=== PATIENT | male | born 1975 | race Caucasian/White ===

== ENCOUNTER 2021-03-17 14:55 | Observation (INO) | payer OTHER ==
[~2021-03-17] VITALS: Ht 177.8 cm; Wt 110.0 kg
--- NOTE | ~2021-03-17 | OP ---
[facility] [address] [place] [address] OPERATIVE REPORT Name: PARMJIT CLEMONS Room: [address] IN M.R.#: [id number] Admission: 03/17/21 Attend Phys: Juan Murdock Discharge: Date of : 73 Report #: [id number] THIS REPORT FOR: cc: Amla Garcia Amy FNP Patterson,Juan Moise MD ~ DATE OF SURGERY: 03/18/2021 PREOPERATIVE DIAGNOSIS: Acute appendicitis. POSTOPERATIVE DIAGNOSIS: Acute appendicitis. OPERATION: Laparoscopic appendectomy. SURGEON: Juan Murdock MD ANESTHESIA: General. ESTIMATED BLOOD LOSS: Minimal. SPECIMENS: Appendix. DESCRIPTION OF PROCEDURE: After informed consent was obtained, the patient was brought to the operating room and placed supine. SCDs were placed and working, preoperative antibiotics were administered, general anesthesia was induced. The abdomen was prepped and draped in the usual sterile fashion. A 10 mm incision was made below the umbilicus. Fascia was incised and a trocar was placed. Pneumoperitoneum was established. A right upper quadrant and left lower quadrant 5 mm trocars were placed. The appendix was grasped and retracted anteriorly. A window was made in the mesoappendix. The mesoappendix was ligated using a LigaSure device. There was good hemostasis. Base of the appendix was identified. The base of the appendix was stapled off with a DAYNA blue load stapler. The appendix was placed into an Endopouch and removed. The fascia was then closed with a duqica-cf-vwywu 0 Vicryl. Skin was closed with 4-0 Monocryl. Incisions were dressed with Steri-Strips. COMPLICATIONS: None. DISPOSITION: The patient was taken to recovery in satisfactory condition. By: [id number] Murdock MD /nt
[2021-03-17 15:02] VITALS: BP 144/83
[2021-03-17] MEDS ORDERED: LISINOPRIL20 MG PO (15:09)
[2021-03-17 15:26] LABS: URINE BILIRUBIN NEGATIVE (Negative); URINE BLOOD TRACE (Negative); URINE CLARITY CLEAR; URINE COLOR YELLOW; URINE GLUCOSE-RANDOM NEGATIVE (Negative); URINE KETONES NEGATIVE (Negative); URINE LEUKOCYTES-REFLEX NEGATIVE (Negative); URINE NITRITE-REFLEX NEGATIVE (Negative); URINE PROTEIN NEGATIVE (Negative); URINE SPECIFIC GRAVITY 1.015 (1.005-1.030); URINE UROBILINOGEN 0.2 E.U./dl (0.2-1.0)
[2021-03-17 15:32] LABS: ABSOLUTE BASOPHILS 0.1 thou/uL (0.0-0.2); ABSOLUTE EOSINOPHILS 0.1 thou/uL (0.0-0.7); ABSOLUTE LYMPHOCYTES 2.2 thou/uL (0.8-5.3); ABSOLUTE NEUTROPHILS 8.5 thou/uL (1.6-8.1); BASOPHILS 0.6 %; EOSINOPHILS 0.7 %; HEMATOCRIT 43.8 % (42.0-52.0); HEMOGLOBIN 15.2 gm/dL (14.0-18.0); LYMPHOCYTES 18.8 %; MCH 29.9 pg (26.0-34.0); MCHC 34.6 g/dL (28.0-37.0); MCV 86.3 fL (80.0-100.0); MONOCYTES 8.2 %; MPV 7.4 fl. (7.2-11.1); NUCLEATED RBCS 0 /100WBC; PLATELET COUNT* 198 thou/uL (150-400); POLYS 71.7 %; RBC 5.07 mil/uL (4.50-6.00); WBC 11.9 thou/uL (4.0-11.0)
[2021-03-17 15:40] LABS: CALCIUM 8.5 mg/dL (8.5-10.1); CREATININE 1.1 mg/dL (0.6-1.3)
[2021-03-17 15:44] LABS: ALBUMIN 3.6 g/dL (3.4-5.0); TOTAL BILIRUBIN 0.6 mg/dL (<0.1-1.0); TOTAL PROTEIN 7.1 g/dL (6.4-8.2)
--- NOTE | 2021-03-17 16:07 | EKG ---
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: [facility] : 1975 Requested By: Darrel Akbar Order Number: [id number] MD: Shawn Cox Measurements Intervals [place] Rate: 76 P: 31 UT: 158 QRS: 16 QRSD: 76 T: 15 QT: 364 QTc: 410 Interpretive Statements Sinus rhythm wandering baseline Probable left atrial enlargement No previous ECG available for comparison Electronically Signed On 03-17-2021 16:07:16 CDT by Shawn Cox [email or web address] <ELECTRONICALLY SIGNED> By: Shawn Cox MD, [facility] 03/17/21 1607 D: [id number] Shawn Cox MD, FACC /EPI
[2021-03-17 20:10] VITALS: BP 134/78
[2021-03-17 20:46] VITALS: BP 138/89
[2021-03-18] VITALS (7 sets, daily range): BP systolic 117–148; BP diastolic 76–91
--- NOTE | 2021-03-19 17:06 | PATH ---
[address] [address] PATHOLOGY RPT PROCEDURE Name: PARMJIT CLEMONS Room: [address] MChristyRChristy#: [id number] Admission: 03/17/21 Date of : 73 Discharge: 03/18/21 Report #: [id number] Path Case #: [id number] [facility] Accession Number: [id number] . 01 Material submitted: . appendix - APPENDIX . 01 Clinical history: . LAPAROSCOPIC APPENDECTOMY ACUTE APPENDICITIS . 02 Diagnosis: Appendix: - Acute appendicitis, periappendicitis and serositis. (STEPHIE:zachariah; 03/19/2021) MBR 03/19/2021 1540 Local . 02 Electronically signed: . Paul Ignacio MD, Pathologist NPI- [id number] . 01 Gross description: . Fixative: Formalin Labeled: Appendix Appendix length: 9.0 cm Appendix diameter: Up to 2.0 cm Mesoappendix: Up to 1.0 cm Proximal margin: Stapled Serosa: Light ford-valentin Cut surface: Pinpoint to dilated lumen Luminal diameter: 1.2 cm Perforation: None identified Lesions/abnormalities: None identified A1 Proximal margin (inked black) and distal tip, bisected A2-A3 Mid appendix ([facility]; 03/18/2021) [facility] 03/19/[address] [place] [address] . 02 Pathologist provided ICD-10: K35.80, K65.8 . 02 CPT . 202727 Specimen Comment: A courtesy copy of this report has been sent to [phone] Specimen Comment: Report sent to Performed at: [address] [id number] MD Gustavo Guan MD Phone: [phone] [place] [address] PATHOLOGY RPT PROCEDURE Name: DEONTEPARMJIT E Room: [address]#: [id number] Admission: 03/17/21 Date of : 73 Discharge: 03/18/21 Report #: [id number] Path Case #: [id number] Performed at: 02 [facility] [address], ZIA Cavazos [id number] MD Paul Ignacio MD Phone: [phone]
== END 2021-03-18 15:50 | disposition home or self-care (01) ==
LOC: M.ERS 14:55 → M.3W 17:50 → M.TBA-ER 17:50 → M.3W 17:50
PROVIDERS: Family Medicine; ADMIT Surgery; ATTEND Surgery
DX: K35.80 Unspecified acute appendicitis (principal); Z20.822 Contact with and (suspected) exposure to COVID-19; I10 Essential (primary) hypertension; F17.200 Nicotine dependence, unspecified, uncomplicated; Z98.890 Other specified postprocedural states